=== PATIENT | male | born 1955 | race Caucasian/White ===

== ENCOUNTER 2017-03-12 15:39 | Emergency (ER) | payer OTHER ==
[2017-03-12] MEDS ORDERED: ASPIRIN 81 MG CHEWABLE TAB PO ONE (15:51)
[2017-03-12 15:53] VITALS: RESP 16; TEMP 98.1
[2017-03-12] MEDS ORDERED: ENOXAPARIN 80 MG/0.8 ML SYR SC ONE (16:44)
--- NOTE | 2017-03-12 17:02 | UCPHY ---
H & P Time Seen by Provider: 03/12/17 16:21 Patient Type: Established HPI/ROS: This patient had been on Eliquis for a left leg DVT complicating a fracture to the left fibula. After 6 months of anticoagulation he was taken off of his Eliquis and then travel to [place]. 3-4 days after returning he started developing from right leg pain reminiscent of his DVT pain he experiences in the left playing him in for evaluation. Describes as crampy in nature 3/10 intensity to the posterior calf worse with walking with no other exacerbating factors. ROS: No fevers chills or other constitutional symptoms. HEENT: No complaints pulmonary: No pleuritic pain or shortness of breath cardiovascular: No lightheadedness or palpitations. Musculoskeletal: No recent trauma to the leg. Integumentary: No skin rash associated with this. 7 point ROS otherwise negative Past Medical/Surgical History: Left leg DVT complicating fracture of fibula He actually has blood work pending to see if he has any heritable causes of hypercoagulability but does not know results of this testing yet. Smoking Status: Former smoker Physical Exam: Physical Exam Vital signs are normal. General: No acute distress Eyes: Pupils equal and react to light. Extraocular motions are intact. Lungs: No respiratory distress. Cardiac: Brisk capillary refill is intact throughout. Pulses are 2+ and symmetric in the affected extremity. Skin: No rash or pallor. Extremities: Atraumatic normal except for left leg Left leg: Patient has mild posterior calf tenderness. Homans is negative. No significant swelling. Neuro: Alert with no sensorimotor deficits. In the affected extremity. Initial differential diagnosis: Calf strain, calf cramps, DVT Constitutional: Initial Vital Signs Temperature (C) 36.7 C 03/12/17 15:45 Heart Rate 64 03/12/17 15:45 Respiratory Rate 16 03/12/17 15:45 Blood Pressure 155/82 H 03/12/17 15:45 O2 Sat (%) 94 03/12/17 15:45 O2 Delivery Mode Room Air Allergies/Adverse Reactions: No Known Allergies Allergy (Verified 03/12/17 15:53) Home Medications: Medication Instructions Recorded Apixaban [Eliquis] 10 mg PO BID #50 tab 03/12/17 Lisinopril 03/12/17 MDM/Departure - MDM Diagnostics: Right lower extremity Doppler ultrasound positive for low DVT in the calf below the popliteal for radiologist. Imaging: Discussed imaging studies w/ on call Radiologist Medications Given: Discontinued Medications Aspirin (Aspirin) 324 mg PO EDNOW ONE Stop: 03/12/17 15:52 Last Admin: 03/12/17 15:56 Dose: 324 mg Enoxaparin Sodium (Lovenox) 80 mg SC EDNOW ONE Stop: 03/12/17 16:45 Last Admin: 03/12/17 17:01 Dose: Not Given ED Course/Re-evaluation: Patient treated with aspirin. I counseled him regarding DVT. He is comfortable going back on to Eliquis prefers this over Lovenox injection. Discussion: Patient here with lower extremity DVT below the popliteal with no clinical evidence to suggest associated PE. We will start him on Eliquis since he has been treated with this for prior DVT. Patient understands the treatment plan will follow up with his primary care physician this week. - Depart Disposition: Home, Routine, Self-Care Clinical Impression: Right leg DVT Qualifiers: Affected thrombotic vein of extremity: other lower extremity vein Chronicity: acute Qualified Code(s): I82.491 - Acute embolism and thrombosis of other specified deep vein of right lower extremity Condition: Good Instructions: Apixaban (By mouth), Deep Venous Thrombosis (ED) Additional Instructions: Diagnosis: Right lower extremity DVT Plan: Start Eliquis blood thinner tonight and take as prescribed Call your primary physician to arrange follow-up appointment Go to the emergency department if he developed chest pain shortness of breath or other concerns. Prescriptions: Apixaban [Eliquis] 10 mg PO BID #50 tab Referrals: Maykel Baldwin MD [Primary Care Provider] - As per Instructions - PQRS PQRS Measurement: NA
[2017-03-12 17:08] VITALS: BP 152/88; PULSE 66; O2SAT 96
== END 2017-03-12 17:05 | disposition home or self-care (01) ==
LOC: CED 15:39
DX: I82.441 Acute embolism and thrombosis of right tibial vein (principal)
CPT/HCPCS: 93971-PO; 99214-PO; G0463-PO; J1650